=== PATIENT | female | born 1955 | race Hispanic/Latino ===

== ENCOUNTER → 2019-04-17 | Outpatient (CLI) | payer BC ==
[~2019-04-17] VITALS: Ht 149.9 cm; Wt 56.7 kg
[~2019-04-17] MED LIST: ASCO10007 PO; DEXL60CA3 PO; FENO40TA4 PO; FEXO1TAB8 PO; OXYM-17 NS; PANT40TA25 PO; REGADENOSON 0.4 MG/5 ML PF SYG IVP SCH; SUCR1TAB2 PO
== END | disposition home or self-care (01) ==
LOC: RAH 09:01
PROVIDERS: ATTEND Internal Medicine
DX: R07.9 Chest pain, unspecified (principal)
CPT/HCPCS: 78452; 93017; 96374; A9500 ×2; J2785